=== PATIENT | male | born 1950 | race African-American/Black ===

== ENCOUNTER 2022-08-22 09:44 | Emergency (ER) | payer MEDICARE, OTHER ==
[~2022-08-22] VITALS: Ht 172.7 cm; Wt 70.0 kg
[~2022-08-22 09:44] MED LIST: AMLO5TAB88 MT; OLAN5TAB6 PO
[2022-08-22 09:46] VITALS: TEMP 98.1; O2SAT 96
[2022-08-22] MEDS ORDERED: IBUPROFEN 600MG TABLET PO ONE (10:00)
[2022-08-22 11:30] VITALS: BP 135/91; PULSE 99; RESP 16
[2022-08-22] MEDS ORDERED: AMOXICILLIN/POTASSIUM CLAVULANATE 875/125MG TAB PO ONE (11:30)
[2022-08-22] MEDS ORDERED: ACETAMINOPHEN WITH CODEINE 300/30MG TABLET PO ONE (11:30)
[2022-08-22] MEDS ORDERED: T3 PO (11:39)
[2022-08-22] MEDS ORDERED: IBUP-2029 MT (11:39)
[2022-08-22] MEDS ORDERED: AMOX1TAB16 MT (11:39)
== END 2022-08-22 12:45 | disposition home or self-care (01) ==
LOC: ER 09:44
DX: S02.85XA Fracture of orbit, unspecified, initial encounter for closed fracture (principal); S06.9XAA Unspecified intracranial injury with loss of consciousness status unknown, initial encounter; F11.20 Opioid dependence, uncomplicated; Y04.0XXA Assault by unarmed brawl or fight, initial encounter; Y93.89 Activity, other specified; Y92.89 Other specified places as the place of occurrence of the external cause; Y99.8 Other external cause status
CPT/HCPCS: 70486; 99284

== ENCOUNTER 2022-12-24 17:08 | Emergency (ER) | payer MEDICARE, OTHER ==
[~2022-12-24] VITALS: Ht 180.3 cm; Wt 68.9 kg
[~2022-12-24 17:08] MED LIST changes: +IBUP-2029 MT; +T3 PO
[2022-12-24 17:55] VITALS: BP 164/86; PULSE 84; RESP 16; TEMP 98.4; O2SAT 98
[2022-12-24] MEDS ORDERED: CIPR-264 MT (21:40)
[2022-12-24] MEDS ORDERED: TAMS-11 MT (21:40)
== END 2022-12-24 22:21 | disposition home or self-care (01) ==
LOC: ER 17:08
DX: R32 Unspecified urinary incontinence (principal)
CPT/HCPCS: 99283

== ENCOUNTER 2023-05-04 22:55 | Emergency (ER) | payer MEDICARE, OTHER ==
[~2023-05-04] VITALS: Ht 188 cm; Wt 95.0 kg
[~2023-05-04 22:55] MED LIST changes: +CIPR-264 MT; +TAMS-11 MT
[2023-05-04 23:00] VITALS: O2SAT 100
[2023-05-04] MEDS: ACETAMINOPHEN 325MG TABLET PO ONE (23:54)
[2023-05-05 01:40] LABS: BASOPHILS % 0.1 % (0.0-2.0); HEMATOCRIT. 44.4 % (42.0-52.0); HEMOGLOBIN. 15.1 g/dL (14.0-18.0); LYMPHOCYTES % 12.3 % (20.0-50.0); MEAN CORPUSCULAR HEMOGLOBIN 32.2 pg (28.0-32.0); MEAN CORPUSCULAR HGB CONC 34.1 g/dL (31.0-37.0); MEAN CORPUSCULAR VOLUME 94.4 fL (80.0-94.0); MEAN PLATELET VOLUME 7.4 fl (7.4-10.4); MONOCYTES % 10.1 % (2.0-8.0); NEUTROPHILS % 77.5 % (40.0-76.0); PLATELET 187 x1000/uL (130-400); RED CELL DISTRIBUTION WIDTH 15.1 % (11.6-14.6); WHITE BLOOD COUNT 8.6 x1000/uL (4.5-11.0)
[2023-05-05 01:54] LABS: CALCIUM 9.3 mg/dL (8.7-10.4); CARBON DIOXIDE 26 mEq/L (21-32); CHLORIDE 105 mEq/L (98-107); GLUCOSE 105 mg/dL (70-105); POTASSIUM 4.1 mEq/L (3.5-5.1); SODIUM 139 mEq/L (136-145); UREA NITROGEN BLOOD 12 mg/dL (9-23)
[2023-05-05] MEDS: HYDRALAZINE 20MG/ML VIAL IV ONE ×2 (02:13→06:44)
[2023-05-05] MEDS: ONDANSETRON HCL 4MG/2ML INJ IV NR (02:13)
[2023-05-05] MEDS: MORPHINE SULFATE 4 MG/ML CPJ (NOT FOR IM USE) IV NR (02:13)
[2023-05-05] MEDS: AMPICILLIN SOD/SULBACTAM NA 1.5 G in SODIUM CHLORIDE 0.9% 50 ML IV SCH (04:06)
[2023-05-05] MEDS ORDERED: ONDANSETRON HCL 4MG/2ML INJ IV PRN (06:45)
[2023-05-05] MEDS: TETANUS, DIPHTHERIA, PERTUSSIS VAC/PF 0.5ML (>10YR OLD) IM ONE (06:58)
[2023-05-05] MEDS: MORPHINE SULFATE 4 MG/ML CPJ (NOT FOR IM USE) IV ONE ×2 (07:02→07:07)
[2023-05-05 08:22] VITALS: TEMP 98.2
[2023-05-05] MEDS: MORPHINE SULFATE 4 MG/ML CPJ (NOT FOR IM USE) IV STA ×2 (09:26→13:04)
[2023-05-05] MEDS: ONDANSETRON HCL 4MG/2ML INJ IV STA ×2 (09:26→13:04)
[2023-05-05 13:04] VITALS: BP 123/89; PULSE 112; RESP 10
== END 2023-05-05 13:05 | disposition short-term general hospital (02) ==
LOC: ER 22:55
DX: S72.142A Displaced intertrochanteric fracture of left femur, initial encounter for closed fracture (principal); S02.40FA Zygomatic fracture, left side, initial encounter for closed fracture; S02.85XA Fracture of orbit, unspecified, initial encounter for closed fracture; S06.5X0A Traumatic subdural hemorrhage without loss of consciousness, initial encounter; I10 Essential (primary) hypertension; F14.10 Cocaine abuse, uncomplicated; Z79.899 Other long term (current) drug therapy; Z20.822 Contact with and (suspected) exposure to COVID-19; W18.39XA Other fall on same level, initial encounter; Y93.89 Activity, other specified; Y92.89 Other specified places as the place of occurrence of the external cause; Y99.8 Other external cause status
CPT/HCPCS: 99285; 73502; 73552; 70450; 96365; 96375; 71045; 87426; 80048; 85025; 86850; 86900; 86901; 36415; 70486; 93005; 96376; J0295; J0360; J2405; J2270